=== PATIENT | female | born 1995 | race African-American/Black ===

== ENCOUNTER 2017-04-23 14:49 | Emergency (ER) | payer SELFPAY ==
[~2017-04-23] VITALS: Ht 167.6 cm; Wt 78.0 kg
[2017-04-23] MEDS ORDERED: IBUPROFEN 600MG TABLET PO ONE (19:45)
[2017-04-23 19:56] LABS: BASOPHILS % 0.2 % (0.0-2.0); HEMATOCRIT. 40.5 % (36.0-48.0); HEMOGLOBIN. 13.2 g/dL (12.0-16.0); LYMPHOCYTES % 31.4 % (20.0-50.0); MEAN CORPUSCULAR HEMOGLOBIN 27.3 pg (28.0-32.0); MEAN CORPUSCULAR VOLUME 83.8 fL (81.0-99.0); MONOCYTES % 6.8 % (2.0-8.0); NEUTROPHILS % 59.6 % (40.0-76.0); PLATELET 293 x1000/uL (130-400); RED BLOOD CELL COUNT 4.83 mill/uL (4.2-5.4); RED CELL DISTRIBUTION WIDTH 14.4 % (11.6-14.6)
[2017-04-23 20:00] LABS: INR 1.1; PROTHROMBIN TIME 11.4 sec (9.4-11.6)
[2017-04-23 20:02] LABS: CHLORIDE 106 mEq/L (98-107)
[2017-04-23 20:10] LABS: CARBON DIOXIDE 28 mEq/L (21-32)
[2017-04-23 20:16] LABS: CLARITY URINE CLEAR (CLEAR); COLOR URINE YELLOW (YELLOW); KETONES URINE NEGATIVE (NEGATIVE); LEUKOCYTE ESTERASE URINE 2+ (NEGATIVE); NITRITE URINE NEGATIVE (NEGATIVE); OCCULT BLOOD URINE TRACE (NEGATIVE); PH URINE 5.5 (4.5-8.0); PROTEIN URINE NEGATIVE (NEGATIVE)
[2017-04-23 20:39] VITALS: BP 127/83
[2017-04-23] MEDS ORDERED: CEFTRIAXONE SODIUM 250 MG/VIAL IM ONE (21:30)
[2017-04-23] MEDS ORDERED: AZITHROMYCIN 500 MG TABLET PO ONE (21:30)
[2017-04-28 09:07] LABS: CHLAMYDIA TRACHOMATIS NAA Negative (Negative)
[2017-04-28 17:12] LABS: NEISSERIA GONORRHOEAE NAA Positive (Negative)
== END 2017-04-23 22:32 | disposition home or self-care (01) ==
LOC: ER 15:23
DX: N39.0 Urinary tract infection, site not specified (principal); B96.89 Other specified bacterial agents as the cause of diseases classified elsewhere; N76.0 Acute vaginitis
CPT/HCPCS: 36415; 80053; 81001; 81025; 83690; 85025; 85610; 87210; 87491; 87591; 96372; 99284; J0696; Z7610

== ENCOUNTER 2017-10-28 03:25 | Emergency (ER) | payer MEDICAID ==
[~2017-10-28] VITALS: Ht 167.6 cm; Wt 106.0 kg
[2017-10-28] MEDS ORDERED: METHYLPREDNISOLONE SOD SUCC 125 MG/2 ML VIAL IM ONE (08:30)
[2017-10-28 11:55] VITALS: BP 120/73
== END 2017-10-28 12:00 | disposition home or self-care (01) ==
LOC: ER 03:25
DX: R21 Rash and other nonspecific skin eruption (principal)
CPT/HCPCS: 96372; 99283; J2930

== ENCOUNTER 2017-11-01 22:27 | Emergency (ER) | payer MEDICAID ==
[~2017-11-01] VITALS: Ht 165.1 cm; Wt 106.0 kg
[2017-11-01 22:48] VITALS: BP 136/57
== END 2017-11-02 05:40 | disposition left against medical advice (07) ==
LOC: ER 22:55
DX: N89.8 Other specified noninflammatory disorders of vagina (principal); Z53.21 Procedure and treatment not carried out due to patient leaving prior to being seen by health care provider